=== PATIENT | male | born 1940 | race Caucasian/White ===

== ENCOUNTER 2017-05-15 21:13 | Emergency (ER) | payer MEDICARE, OTHER ==
[2017-05-15] MEDS ORDERED: HALOPERIDOL 2 MG TABLET PO ONE (22:20)
[2017-05-15 23:13] LABS: ABSOLUTE BASOPHILS # (AUTO) 0.1 10^3/uL (0.0-0.2); ABSOLUTE EOSINOPHILS # (AUTO) 0.6 10^3/uL (0.0-0.6); ABSOLUTE LYMPHOCYTES (AUTO) 1.6 10^3/uL (0.5-4.7); ABSOLUTE MONOCYTES (AUTO) 0.7 10^3/uL (0.1-1.4); ABSOLUTE NEUT (AUTO) 7.7 10^3/uL (1.7-8.2); BASOPHILS % (AUTO) 0.8 % (0-2); EOSINOPHILS % (AUTO) 5.9 % (0-6); HEMATOCRIT 27.8 % (37.9-51.0); HEMOGLOBIN 9.5 g/dL (13.5-17.0); HGB HCT DIFFERENCE 0.7; LYMPHOCYTES % (AUTO) 14.9 % (13-45); MEAN CORPUSCULAR HEMOGLOBIN 31.6 pg (27.0-33.4); MEAN CORPUSCULAR HGB CONC 34.2 g/dL (32.0-36.0); MEAN CORPUSCULAR VOLUME 93 fl (80-97); MONOCYTES % (AUTO) 6.1 % (3-13); RED CELL DISTRIBUTION WIDTH 14.1 % (11.5-14.0); SEGMENTED NEUTROPHILS % (AUTO) 72.3 % (42-78); WHITE BLOOD COUNT 10.7 10^3/uL (4.0-10.5)
--- NOTE | 2017-05-15 23:16 | RADIOLOGY REPORT (SQ) ---
EXAM DESCRIPTION: CT HEAD WITHOUT COMPLETED DATE/TIME: 05/15/2017 10:43 pm REASON FOR STUDY: ams COMPARISON: None. TECHNIQUE: Axial images acquired through the brain without intravenous contrast. Images reviewed wi th bone, brain and subdural windows. Images stored on PACS. All CT scanners at this facility use dose modulation, iterative reconstruction, and/or weight based d osing when appropriate to reduce radiation dose to as low as reasonably achievable (ALARA). [facility]: Dose Right [facility]: CareDose [facility]: Dose Right [facility]: Teradose 4D [facility]: [employer] RADIATION DOSE: mGy. LIMITATIONS: None. FINDINGS: VENTRICLES: Normal size and contour. CEREBRUM: No masses. No hemorrhage. No midline shift. No evidence for acute infarction. Normal gra y/white matter differentiation. No areas of low density in the white matter. CEREBELLUM: No masses. No hemorrhage. No alteration of density. No evidence for acute infarction. EXTRAAXIAL SPACES: No fluid collections. No masses. ORBITS AND GLOBE: No intra- or extraconal masses. Normal contour of globe without masses. CALVARIUM: No fracture. PARANASAL SINUSES: No fluid or mucosal thickening. SOFT TISSUES: No mass or hematoma. OTHER: No other significant finding. IMPRESSION: No acute intracranial findings. EVIDENCE OF ACUTE STROKE: NO. COMMENT: Quality ID # [id number]: Final reports with documentation of one or more dose reduction techniques (e.g., Automated exposure control, adjustment of the mA and/or kV according to patient size, use of iterative reconstruction technique) TECHNICAL DOCUMENTATION: JOB ID: [id number] [place]-72 2010 [employer]- All Rights Reserved
[2017-05-15 23:34] LABS: ALANINE AMINOTRANSFERASE 22 U/L (21-72); ALBUMIN 4.1 g/dL (3.5-5.0); ALKALINE PHOSPHATASE 60 U/L (38-126); ANION GAP 13 (5-19); ASPARTATE AMINO TRANSFERASE 47 U/L (17-59); BILIRUBIN,DIRECT 0.5 mg/dL (0.0-0.4); BILIRUBIN,TOTAL 0.5 mg/dL (0.2-1.3); BLOOD UREA NITROGEN 38 mg/dL (7-20); CALCIUM 9.4 mg/dL (8.4-10.2); CARBON DIOXIDE 23 mmol/L (22-30); CHLORIDE 105 mmol/L (98-107); CREATININE RESULT 1.55 mg/dL (0.52-1.25); GLUCOSE 136 mg/dL (75-110); POTASSIUM 4.5 mmol/L (3.6-5.0); SODIUM 140.9 mmol/L (137-145); TOTAL PROTEIN 6.8 g/dL (6.3-8.2)
[2017-05-16] MEDS ORDERED: HALOPERIDOL 1 MG TABLET PO ONE (00:02)
[2017-05-16 00:10] LABS: APPEARANCE,URINE CLEAR; BILIRUBIN,URINE NEGATIVE (NEGATIVE); GLUCOSE, URINE 50 mg/dL (NEGATIVE); KETONES,URINE NEGATIVE (NEGATIVE); LEUKOCYTE ESTERASE,URINE NEGATIVE (NEGATIVE); NITRITE,URINE NEGATIVE (NEGATIVE); PROTEIN,URINE NEGATIVE (NEGATIVE); URINE SPECIFIC GRAVITY 1.014; UROBILINOGEN,URINE NEGATIVE mg/dL (<2.0)
--- NOTE | 2017-05-16 00:51 | ER Document Report ---
ED General - General Chief Complaint: Altered Mental Status Stated Complaint: HALLUCINATIONS Time Seen by Provider: 05/15/17 22:20 Notes: Patient is a 77-year-old male with a past medical history of Parkinson's, currently on carbidopa levodopa, has been receiving this medication for approximately 20 years who presents with 3 days of intermittent visual and auditory hallucinations. His states that he has been coming intermittently agitated, believing people are in the house and screaming at them to get out. Nothing seems to improve or worsen the symptoms. She states he has never had similar symptoms in the past prior to the past several days. He has not been able to see his neurologist regarding this concern. He denies any acute infectious symptoms. No head trauma. No change in the dosing of his medication. TRAVEL OUTSIDE OF THE [place] IN LAST 30 DAYS: No - Related Data Allergies/Adverse Reactions: Penicillins Allergy (Verified 05/15/17 21:18) Past Medical History - General Information source: Patient, Relative - Social History Smoking Status: Never Smoker Frequency of alcohol use: None Drug Abuse: None Lives with: Spouse/Significant other Family History: Reviewed & Not Pertinent Patient has suicidal ideation: No Patient has homicidal ideation: No Renal/ Medical History: Denies: Hx Peritoneal Dialysis Review of Systems - Review of Systems Notes: Constitutional: Negative for fever. HENT: Negative for sore throat. Eyes: Negative for visual changes. Cardiovascular: Negative for chest pain. Respiratory: Negative for shortness of breath. Gastrointestinal: Negative for abdominal pain, vomiting or diarrhea. Genitourinary: Negative for dysuria. Musculoskeletal: Negative for back pain. Skin: Negative for rash. Neurological: Negative for headaches, weakness or numbness. Positive for hallucinations 10 point ROS negative except as marked above and in HPI. Physical Exam - Vital signs Vitals: Temp Pulse Resp BP Pulse Ox 98 F 76 16 150/70 H 100 05/16/17 01:49 05/16/17 01:49 05/16/17 01:49 05/16/17 01:49 05/16/17 01:49 Interpretation: Hypertensive Notes: PHYSICAL EXAMINATION: GENERAL: Appears somewhat older than stated age. In no acute distress. HEAD: Atraumatic, normocephalic. EYES: Pupils equal round and reactive to light, extraocular movements intact, sclera anicteric, conjunctiva are normal. ENT: nares patent, oropharynx clear without exudates. Moist mucous membranes. NECK: Normal range of motion, supple without lymphadenopathy LUNGS: Breath sounds clear to auscultation bilaterally and equal. No wheezes rales or rhonchi. HEART: Regular rate and rhythm without murmurs ABDOMEN: Soft, nontender, normoactive bowel sounds. No guarding, no rebound. No masses appreciated. EXTREMITIES: Normal range of motion, no pitting or edema. No cyanosis. NEUROLOGICAL: No focal neurological deficits. Moves all extremities spontaneously and on command. Tremor of the right foot. PSYCH: Intermittently looking off toward his left side, seems to be responding to a visual hallucination. SKIN: Warm, Dry, normal turgor, no rashes or lesions noted. Course - Re-evaluation Re-evalutation: 05/16/17 00:44 Patient with a history of Parkinson's disease presents with visual hallucinations likely secondary to his levodopa carbidopa. Patient CT the head is unremarkable, urinalysis is clear. He has no localizing infectious symptoms. After receiving a total of 3 mg of oral haloperidol even gradually over the course of 1.5 hours patient had resolution of his visual hallucinations. I have discussed with the patient and his at the bedside at length that his symptoms are likely due to his medications that he is using for Parkinson's but there is also the risk of as we decrease his medications him becoming increasingly spastic and having less motor coordination. I have asked that they please contact his Parkinson's neurologist in the morning for an urgent appointment to discuss medication adjustments. Patient and his are in agreement. At this time will discharge with return precautions and follow-up recommendations. Verbal discharge instructions given a the bedside and opportunity for questions given. Medication warnings reviewed. Patient is in agreement with this plan and has verbalized understanding of return precautions and the need for primary care follow-up in the next 24-72 hours. - Vital Signs Vital signs: Temp Pulse Resp BP Pulse Ox 98 F 76 16 150/70 H 100 05/16/17 01:49 05/16/17 01:49 05/16/17 01:49 05/16/17 01:49 05/16/17 01:49 - Laboratory Result Diagrams: 05/15/17 22:57 05/15/17 22:57 Laboratory results interpreted by me: 05/15/17 05/15/17 05/15/17 22:57 22:57 23:50 WBC 10.7 H RBC 3.00 L Hgb 9.5 L Hct 27.8 L RDW 14.1 H BUN 38 H Creatinine 1.55 H Est GFR ( Amer) 53 L Est GFR (Non-Af Amer) 44 L Glucose 136 H Direct Bilirubin 0.5 H Urine Glucose (UA) 50 H Discharge - Discharge Clinical Impression: Visual hallucinations, Parkinsons disease Condition: Good Disposition: HOME, SELF-CARE Additional Instructions: Please follow-up with your neurologist as soon as possible for discussion of medication adjustments. Return if you have worsening of your hallucinations, fever, vomiting, or any other symptoms that are worrisome to you. Referrals: GET LEE, [employer] [Primary Care Provider] - Follow up as needed
[2017-05-16 01:50] VITALS: BP 150/70
== END 2017-05-16 01:50 | disposition home or self-care (01) ==
LOC: EDBD → ER 21:13
DX: R44.1 Visual hallucinations (principal); G20 Parkinson's disease; R41.82 Altered mental status, unspecified
CPT/HCPCS: 99285; 36415; 85025; 80053; 81001; 70450; A9270 ×2; J3490